=== PATIENT | female | born 1960 | race Caucasian/White ===

== ENCOUNTER → 2020-12-04 05:01 | Outpatient (REF) | payer MEDICAID, SELFPAY ==
[2020-12-04 07:32] LABS: Absolute Lymphocyte Count 1.23 X10^3/uL (0.83-4.51); Absolute Neutrophil Count 5.2 X10^3/uL (2.0-7.7); Basophil# 0.05 X10^3/uL; Basophil% 0.6 % (0-1); Hematocrit 29.2 % (37-47); Lymphocyte # 1.23 X10^3/ul (0.83-4.51); Lymphocyte % 14.4 % (19-41); Mean Corp Hgb Conc 30.8 g/dL (32-36); Mean Corpuscular Hgb 28.8 pg (27.0-32.0); Mean Corpuscular Volume 93.3 fL (81-99); Mean Platelet Vol. 10.4 fl (6.2-12.0); Monocyte% 10.5 % (0-10); NRBC Flagged by Analyzer 0 % (0-5); Neutrophil # 5.16 X10^3/uL (2.7-7.7); Neutrophil % 60.3 % (47-70); Platelet Count 175 K/mm3 (150-450); RBC Distribution Width SD 47.3 fl (35.1-43.9); Red Blood Count 3.13 M/mm3 (4.2-5.4); White Blood Count 8.6 K/mm3 (4.4-11.0)
[2020-12-04 07:50] LABS: ALB/GLOB Ratio 0.6 RATIO (0.9-2.4); AST(SGOT) 26 U/L (15-37); Alanine Aminotransfer ALT/SGPT 30 U/L (13-56); Albumin, Serum 2.8 g/dL (3.2-5.0); Alkaline Phosphatase 100 U/L (45-117); Anion Gap 6 (5-15); BUN 87 mg/dL (7-18); BUN/Creat Ratio 13.7 RATIO (10-20); Calcium,Total 8.5 mg/dL (8.5-10.1); Chloride 99 mmol/L (98-107); Creatinine, Serum 6.34 mg/dL (0.55-1.02); EST Glomerular Filtration Rate 7 mL/min (>60); Est Glom Filt Rate - Afr Amer 9 mL/min (>60); Globulin 4.4 g/dL (2.2-4.2); Glucose 44 mg/dL (74-106); Potassium 4.5 mmol/L (3.5-5.1); Protein, Total 7.2 g/dL (6.4-8.2); Sodium Level 133 mmol/L (136-145)
== END ==
LOC: OLS.SANC 05:01
PROVIDERS: Visit Provider Internal Medicine
DX: I10 Essential (primary) hypertension (principal)
CPT/HCPCS: 36415; 80053; 85025

== ENCOUNTER → 2020-12-10 02:45 | Outpatient (REF) | payer MEDICAID, SELFPAY ==
[2020-12-11 11:31] LABS: Color, Urine Yellow (Yellow); Glucose, Dipstick Normal (Normal); Ketone-Dipstick Negative (Negative); Leukocyte Esterase-Dipstick 100 /ul (Negative); Nitrite-Dipstick Negative (Negative); Occult Blood-Urine 10 /ul (Negative); Protein-Dipstick 100 mg/dl (Negative); Urine Bilirubin Dipstick Negative (Negative); Urine Clarity Sl. Cloudy (Clear); Urine Urobilinogen Normal (Normal)
== END ==
LOC: OLS.SANC 02:45
PROVIDERS: Visit Provider Internal Medicine
DX: R30.0 Dysuria (principal)
CPT/HCPCS: 81002; 87086; 87088

== ENCOUNTER → 2020-12-15 10:09 | Outpatient (REF) | payer MEDICAID, SELFPAY ==
[2020-12-15 11:33] LABS: Anion Gap 9 (5-15); BUN 55 mg/dL (7-18); BUN/Creat Ratio 12.2 RATIO (10-20); Calcium,Total 8.6 mg/dL (8.5-10.1); Chloride 98 mmol/L (98-107); Creatinine, Serum 4.49 mg/dL (0.55-1.02); EST Glomerular Filtration Rate 11 mL/min (>60); Est Glom Filt Rate - Afr Amer 13 mL/min (>60); Glucose 193 mg/dL (74-106); Potassium 4.4 mmol/L (3.5-5.1); Sodium Level 133 mmol/L (136-145)
[2020-12-15 11:41] LABS: BNP,B-Type NATRIURETIC PEPTIDE 91.1 pg/mL (0-100)
== END ==
LOC: OLS.SANC 10:09
PROVIDERS: Visit Provider Internal Medicine
DX: R06.02 Shortness of breath (principal)
CPT/HCPCS: 36415; 80048; 83880

== ENCOUNTER → 2022-01-01 | Outpatient (CLI) | payer MEDICARE, MEDICAID, SELFPAY ==
--- NOTE | 2022-01-01 07:28 | VDUE_ITS ---
Reason For Study: Pre op testing Right Arm Left Arm Right Cephalic Vein at the wrist measures Left Cephalic Vein at the wrist measures 0.29 x 0.33 cm. 0.33 x 0.33 cm. Right Cephalic Vein in the forearm measures Left Cephalic Vein in the forearm measures 0.38 x 0.39 cm. 0.35 x 0.38 cm. Right Cephalic Vein below antecub measures Left Cephalic Vein below antecub measures 0.35 x 0.36 cm. 0.31 x 0.33 cm. Right Cephalic Vein above antecub measures Left Cephalic Vein above antecub measures 0.55 x 0.57 cm. 0.30 x 0.30 cm. Right Cephalic Vein mid bicep measures 0.49 Left Cephalic Vein at mid bicep measures x 0.50 cm. 0.39 x 0.38 cm. Right Cephalic Vein at the shoulder measures Left Cephalic Vein at the shoulder measures 0.40 x 0.41 cm. 0.39 x 0.36 cm. Right Basilic Vein at the origin measures Basilic vein at origin measures 0.46 x 0.47 0.45 x 0.45 cm. cm. Right Basilic Vein mid bicep measures 0.41 x Basilic vein at bicep measures 0.37 x 0.36 0.43 cm. cm. Right Basilic Vein above antecub measures Basilic vein above antecub measures 0.32 x 0.41 x 0.42 cm. 0.32 cm. Right Brachial artery measures 0.44 x 0.47 Left Brachial artery measures 0.38 x 0.37 cm cm with a velocity of 72.4 cm/sec. with a velocity of 77.2 cm/sec. RIght Radial artery measures 0.18 x 0.17 cm Left Radial artery measures 0.21 x 0.20 cm with a velociy of 71.1 cm/sec. with a velocity of 61.6 cm/sec. VL/Dialysis Vein Map PRE-OP BILAT Interpretation Summary Patent and compressible bilateral upper extremity cephalic and basilic veins is noted although quite deeply placed. Normal diameter and flow bilateral radial and brachial arteries Ordering Physician: Piotr Bridges Referring Physician: Micheline Lewis Performed By: Ana Alamo RVT ???
== END | disposition home or self-care (01) ==
LOC: CVS 07:19
PROVIDERS: Referring Provider Surgery; Visit Provider Surgery
DX: Z01.818 Encounter for other preprocedural examination (principal); N18.4 Chronic kidney disease, stage 4 (severe)
CPT/HCPCS: 93985